=== PATIENT | male | born 1965 | race Caucasian/White ===

== ENCOUNTER 2018-02-06 07:23 | Emergency (ER) | payer MEDICAID ==
[~2018-02-06] VITALS: Ht 180.3 cm; Wt 106.6 kg
[2018-02-06 07:52] VITALS: BP 158/72
== END 2018-02-06 08:10 | disposition home or self-care (01) ==
LOC: ER 07:23
DX: Z46.6 Encounter for fitting and adjustment of urinary device (principal)